=== PATIENT | female | born 2000 | race Caucasian/White ===

== ENCOUNTER 2023-06-17 19:47 | Emergency (ER) | payer BC ==
[~2023-06-17] VITALS: Ht 162.6 cm; Wt 54.4 kg
[2023-06-17 20:39] LABS: CLARITY,URINE CLEAR (CLEAR); COLOR,URINE YELLOW (YELLOW); KETONES,URINE NEGATIVE (NEGATIVE); LEUKOCYTE ESTERASE ,URINE NEGATIVE (NEGATIVE); NITRITE,URINE NEGATIVE (NEGATIVE); PROTEIN,URINE DIPSTICK NEGATIVE (NEGATIVE); URINE UROBILINOGEN 0.2 mg/dL (0.2 - 1)
[2023-06-17 20:45] LABS: STREPTOCOCCUS GRP A ANTIGEN NEGATIVE (NEGATIVE)
[2023-06-17 20:48] LABS: BACTERIA,URINE FEW /HPF; EPITHELIAL CELLS,URINE MODERATE /LPF; MUCUS,URINE FEW (RARE)
[2023-06-17 21:05] LABS: INFLUENZAE A&B ANTIGEN (RAPID) NEGATIVE (NEGATIVE)
[2023-06-17 21:46] VITALS: O2SAT 100
== END 2023-06-17 22:32 | disposition home or self-care (01) ==
LOC: ER 19:50
DX: R50.9 Fever, unspecified (principal); J06.9 Acute upper respiratory infection, unspecified; R05.9 Cough, unspecified; Z20.822 Contact with and (suspected) exposure to COVID-19
CPT/HCPCS: 36415; 81001; 81025; 83518; 87070; 87400; 99283; U0002

== ENCOUNTER 2025-03-18 15:04 | Emergency (ER) | payer SELFPAY ==
[~2025-03-18] VITALS: Ht 162.6 cm; Wt 54.4 kg
[2025-03-18 15:09] VITALS: PULSE 77; RESP 18; TEMP 98.3; O2SAT 100
[2025-03-18] MEDS ORDERED: TRIAMCINOLONE A15 G2 TOP (15:32)
[2025-03-18] MEDS ORDERED: TRIAMCINOLONE A15 G4 TP (15:32)
== END 2025-03-18 15:50 | disposition home or self-care (01) ==
LOC: ER 15:21
DX: L30.9 Dermatitis, unspecified (principal); Z86.79 Personal history of other diseases of the circulatory system
CPT/HCPCS: 99282

== ENCOUNTER 2025-04-17 12:49 | Emergency (ER) | payer SELFPAY ==
[~2025-04-17] VITALS: Ht 162.6 cm; Wt 64.4 kg
[~2025-04-17 12:49] MED LIST: TRIAMCINOLONE A15 G2 TOP; TRIAMCINOLONE A15 G4 TP
[2025-04-17 14:06] VITALS: PULSE 79; RESP 14; TEMP 98.6
[2025-04-17] MEDS: DEXAMETHASONE SOD PHOS 10 MG/1 ML VIAL IM ONE (14:27)
[2025-04-17] MEDS: ACETAMINOPHEN 325 MG TAB PO ONE (14:27)
[2025-04-17] MEDS: KETOROLAC TROMETHAMINE 30 MG/ML VIAL IM STA (14:28)
[2025-04-17 15:11] LABS: CORONAVIRUS COVID-19 AG NEGATIVE (NEGATIVE)
[2025-04-17 15:31] LABS: STREPTOCOCCUS GRP A ANTIGEN NEGATIVE (NEGATIVE)
[2025-04-17] MEDS ORDERED: DEXAMETHASONE4 MG PO (15:44)
[2025-04-17 16:11] VITALS: BP 145/92; PULSE 69; RESP 14; TEMP 98.4; O2SAT 100
== END 2025-04-17 16:16 | disposition home or self-care (01) ==
LOC: ER 14:07
DX: R09.89 Other specified symptoms and signs involving the circulatory and respiratory systems (principal); J06.9 Acute upper respiratory infection, unspecified; Z11.52 Encounter for screening for COVID-19; Z86.79 Personal history of other diseases of the circulatory system
CPT/HCPCS: 83518; 87070; 87426; 87428; 99282; J1100; J1885